=== PATIENT | female | born 1940 | race Caucasian/White ===

== ENCOUNTER 2016-12-17 00:06 | Emergency (ER) | payer MEDICARE, OTHER ==
[2016-12-17] MEDS ORDERED: ASPIRIN 81 MG TABLET, CHEWABLE PO ONE (01:53)
--- NOTE | 2016-12-17 01:56 | ER Document Report ---
ED Cardiac - General Chief Complaint: Chest Pain Stated Complaint: CHEST PAIN Time Seen by Provider: 12/17/16 01:47 Notes: Patient is a 76-year-old female comes emergency department for chief complaint of chest pain, she states pain within the left breast, radiated to her left shoulder and arm, symptoms started at 2300 tonight, she states symptoms have almost completely resolved at this time. She states that after the pain started she vomited once. Patient took 81 mg aspirin. Patient denies shortness of breath, cough, fever, injury. Patient has had a heart attack in 2009 [facility] stent [facility]. Non-smoker, past medical history of type 2 diabetes. TRAVEL OUTSIDE OF THE [place] IN LAST 30 DAYS: No - Related Data Allergies/Adverse Reactions: metoprolol [Metoprolol] Allergy (Severe, Verified 12/17/16 03:37) RASH nitrofurantoin [Nitrofurantoin] Allergy (Severe, Verified 12/17/16 03:37) RASH prasugrel HCl [From Effient] Allergy (Severe, Verified 12/17/16 03:37) RASH Past Medical History - General Information source: Patient - Social History Smoking Status: Never Smoker Frequency of alcohol use: None Drug Abuse: None Lives with: Family Family History: Reviewed & Not Pertinent Patient has suicidal ideation: No Patient has homicidal ideation: No - Past Medical History Cardiac Medical History: Reports: Hx Coronary Artery Disease, Hx Heart Attack - CARDIAC CATH, ANGIOPLASTY AND STENT , Hx Hypercholesterolemia, Hx Hypertension Pulmonary Medical History: Denies: Hx Asthma, Hx Bronchitis, Hx COPD, Hx Pneumonia Neurological Medical History: Denies: Hx Cerebrovascular Accident, Hx Seizures Endocrine Medical History: Reports: Hx Diabetes Mellitus Type 2 Renal/ Medical History: Reports: Hx Kidney Stones. Denies: Hx Peritoneal Dialysis GI Medical History: Denies: Hx Hepatitis, Hx Hiatal Hernia, Hx Ulcer Musculoskeltal Medical History: Denies Hx Arthritis Infectious Medical History: Denies: Hx Hepatitis Past Surgical History: Reports: Hx Cardiac Surgery - stent placement. Denies: Hx Mastectomy, Hx Open Heart Surgery, Hx Pacemaker - Immunizations Hx Diphtheria, Pertussis, Tetanus Vaccination: No Review of Systems - Review of Systems Constitutional: No symptoms reported EENT: No symptoms reported Cardiovascular: See HPI Respiratory: No symptoms reported Gastrointestinal: No symptoms reported Genitourinary: No symptoms reported Female Genitourinary: No symptoms reported Musculoskeletal: No symptoms reported Skin: No symptoms reported Hematologic/Lymphatic: No symptoms reported Neurological/Psychological: No symptoms reported Physical Exam - Vital signs Vitals: Temp Pulse Resp BP Pulse Ox 98 F 92 18 146/70 H 96 12/17/16 00:40 12/17/16 00:40 12/17/16 00:40 12/17/16 00:40 12/17/16 00:40 Interpretation: Normal - General General appearance: Appears well, Alert In distress: None - HEENT Head: Normocephalic, Atraumatic Eyes: Normal Conjunctiva: Normal Extraocular movements intact: Yes Eyelashes: Normal Pupils: PERRL Mouth/Lips: Normal Mucous membranes: Normal Pharynx: Normal Neck: Normal - Respiratory Respiratory status: No respiratory distress Chest status: Nontender Breath sounds: Normal. No: Decreased air movement, Wheezing Chest palpation: Normal - Cardiovascular Rhythm: Regular. No: Tachycardia Heart sounds: Normal auscultation, S1 appreciated, S2 appreciated Murmur: No - Abdominal Inspection: Normal Distension: No distension Bowel sounds: Normal Tenderness: Nontender. No: Tender, Guarding Organomegaly: No organomegaly - Back Back: Normal, Nontender. No: Tender - Extremities General upper extremity: Normal inspection, Nontender, Normal color, Normal ROM , Normal temperature General lower extremity: Normal inspection, Nontender, Normal color, Normal ROM , Normal temperature, Normal weight bearing. No: Chandni's sign - Neurological Neuro grossly intact: Yes Cognition: Normal Orientation: AAOx4 [place] Coma Scale Eye Opening: Spontaneous [place] Coma Scale Verbal: Oriented [place] Coma Scale Motor: Obeys Commands [place] Coma Scale Total: 15 Speech: Normal Cranial nerves: Normal Cerebellar coordination: Normal Motor strength normal: LUE, RUE, LLE, RLE Additional motor exam normals: Equal revenue officer Sensory: Normal - Psychological Associated symptoms: Normal affect, Normal mood - Skin Skin Temperature: Warm Skin Moisture: Dry Skin Color: Normal Course - Re-evaluation Re-evalutation: EKG showing sinus rhythm with known left bundle branch block unchanged from prior. Patient chest pain-free on evaluation. No hypotension, tachycardia, or fever. Patient is alert and well appearing. 12/17/16 02:20 CBC unremarkable, chemistry shows elevated glucose at 476 with normal bicarbonate and anion gap. Troponin is elevated at 0.111, previous evaluation of troponin in this department showed a normal level. Creatinine is normal. Patient is chest pain- free at this time. Giving lovenox, will treat hyperglycemia, gave aspirin. Patient was discussed with Dr. Ackerman per [facility] protocol. 12/17/16 02:30 Spoke with [facility] transfer center, pending call back from hospitalist. Shaq 12/17/16 03:[address] Parsons, [facility] internal medicine, patient will be transferred to their facility. He requests that patient be given Lipitor 20 mg and Plavix 75 mg in addition to obtaining CTA pending transfer. Patient is still chest pain-free on reevaluation, states satisfaction with plan. CTA with no acute findings. 12/17/16 04:50 Patient re-evaluated, no current complaints, stable for transport, transport team is here for the patient. - Vital Signs Vital signs: Temp Pulse Resp BP Pulse Ox 98.1 F 87 19 152/81 H 92 12/17/16 04:31 12/17/16 04:31 12/17/16 04:31 12/17/16 04:31 12/17/16 04:31 - Laboratory Result Diagrams: 12/17/16 01:07 12/17/16 01:07 Laboratory results interpreted by me: 12/17/16 12/17/16 12/17/16 01:07 01:07 02:36 RBC 5.35 H Chloride 97 L Glucose 476 H* POC Glucose 404 H* Direct Bilirubin 0.7 H AST 53 H Alkaline Phosphatase 263 H Discharge - Discharge Clinical Impression: NSTEMI (non-ST elevated myocardial infarction), Hyperglycemia Chest pain Qualifiers: Chest pain type: unspecified Qualified Code(s): R07.9 - Chest pain, unspecified Condition: Stable Disposition: [facility] Referrals: CAREY HOLM, [employer] [Primary Care Provider] - Follow up as needed
[2016-12-17] MEDS ORDERED: ASPIRIN 81 MG TABLET, CHEWABLE ONE (01:57)
[2016-12-17 02:07] LABS: ALANINE AMINOTRANSFERASE 39 U/L (9-52); ALBUMIN 4.1 g/dL (3.5-5.0); ALKALINE PHOSPHATASE 263 U/L (38-126); ANION GAP 13 (5-19); ASPARTATE AMINO TRANSFERASE 53 U/L (14-36); BILIRUBIN,DIRECT 0.7 mg/dL (0.0-0.4); BLOOD UREA NITROGEN 9 mg/dL (7-20); CARBON DIOXIDE 28 mmol/L (22-30); CHLORIDE 97 mmol/L (98-107); CREATINE KINASE 57 U/L (30-135); CREATININE RESULT 0.59 mg/dL (0.52-1.25); SODIUM 138.1 mmol/L (137-145); TOTAL PROTEIN 7.6 g/dL (6.3-8.2)
[2016-12-17 02:09] LABS: ABSOLUTE BASOPHILS # (AUTO) 0.1 10^3/uL (0.0-0.2); ABSOLUTE EOSINOPHILS # (AUTO) 0.2 10^3/uL (0.0-0.6); ABSOLUTE LYMPHOCYTES (AUTO) 1.8 10^3/uL (0.5-4.7); ABSOLUTE MONOCYTES (AUTO) 0.7 10^3/uL (0.1-1.4); ABSOLUTE NEUT (AUTO) 5.9 10^3/uL (1.7-8.2); BASOPHILS % (AUTO) 1.1 % (0-2); EOSINOPHILS % (AUTO) 1.8 % (0-6); HEMATOCRIT 46.7 % (36.0-47.0); HEMOGLOBIN 15.3 g/dL (12.0-15.5); HGB HCT DIFFERENCE -0.8; LYMPHOCYTES % (AUTO) 20.7 % (13-45); MEAN CORPUSCULAR HEMOGLOBIN 28.6 pg (27.0-33.4); MEAN CORPUSCULAR HGB CONC 32.7 g/dL (32.0-36.0); MEAN CORPUSCULAR VOLUME 87 fl (80-97); MONOCYTES % (AUTO) 7.9 % (3-13); RED BLOOD COUNT 5.35 10^6/uL (3.72-5.28); RED CELL DISTRIBUTION WIDTH 13.7 % (11.5-14.0); SEGMENTED NEUTROPHILS % (AUTO) 68.5 % (42-78); WHITE BLOOD COUNT 8.6 10^3/uL (4.0-10.5)
[2016-12-17 02:19] LABS: CREATINE KINASE MB 1.76 ng/mL (<4.55); GLUCOSE 476 mg/dL (75-110)
[2016-12-17 02:20] LABS: TROPONIN I 0.111 ng/mL
[2016-12-17] MEDS ORDERED: ENOXAPARIN SODIUM INJ 80 MG/0.8 ML DISP.SYRIN SUBCUT SCH ×2 (02:30→03:00)
[2016-12-17] MEDS ORDERED: INSULIN REG, HUMAN 100 UNIT/ML 3 ML VIAL (PYX) SUBCUT ONE (02:38)
[2016-12-17] MEDS ORDERED: ATORVASTATIN CALCIUM 20 MG TABLET PO ONE (03:00)
[2016-12-17] MEDS ORDERED: CLOPIDOGREL BISULFATE 75 MG TABLET PO ONE (03:00)
[2016-12-17 04:36] VITALS: BP 152/81
--- NOTE | 2016-12-17 10:36 | EKG REPORT ---
SEVERITY:- ABNORMAL ECG - SINUS RHYTHM LEFT BUNDLE BRANCH BLOCK : Confirmed by: Nancy Gonzales MD 17-Dec-2016 10:36:08
== END 2016-12-17 04:50 | disposition short-term general hospital (02) ==
LOC: ER 00:06
DX: I21.4 Non-ST elevation (NSTEMI) myocardial infarction (principal); I10 Essential (primary) hypertension; E11.65 Type 2 diabetes mellitus with hyperglycemia; R11.10 Vomiting, unspecified; R07.9 Chest pain, unspecified; I25.2 Old myocardial infarction; I44.7 Left bundle-branch block, unspecified; Z98.61 Coronary angioplasty status; Z88.8 Allergy status to other drugs, medicaments and biological substances; Z88.1 Allergy status to other antibiotic agents
CPT/HCPCS: 93005; 99285; 96372; 36415; 82553; 82962; 82550; 85025; 80053; 84484; 71010; 71275; 93010; A9270 ×3; J1650; J1815

== ENCOUNTER 2019-06-08 23:17 | Emergency (ER) | payer MEDICARE, OTHER ==
--- NOTE | 2019-06-08 23:39 | ER Document Report ---
ED General - General Chief Complaint: Unresponsive Stated Complaint: UNRESPONSIVE Time Seen by Provider: 06/08/19 23:22 Primary Care Provider: CAREY HOLM [employer]BOL APPLICATION DEVELOPER [Primary Care Provider] - Follow up as needed TRAVEL OUTSIDE OF THE [place] IN LAST 30 DAYS: No - HPI Notes: 78-year-old female with prior history of IN x2 collapsed at home tonight with initiation of CPR by family about 30 minutes prior to arrival here. EMS arrived found patient in V. fib arrest. She was defibrillated a total of 7 times with return of spontaneous circulation. They placed an endotracheal tube. Patient was given amiodarone multiple doses of epi and 1 dose of IV bicarbonate. She was started on levo fed for blood pressure support during transport. He arrives with a pulse with agonal respirations. - Related Data Allergies/Adverse Reactions: metoprolol [Metoprolol] Allergy (Severe, Verified 12/17/16 03:37) RASH nitrofurantoin [Nitrofurantoin] Allergy (Severe, Verified 12/17/16 03:37) RASH prasugrel HCl [From Effient] Allergy (Severe, Verified 12/17/16 03:37) RASH Past Medical History - General Information source: Emergency Med Personnel, [facility] Records - Social History Smoking Status: Current Every Day Smoker Chew tobacco use (# tins/day): No Drug Abuse: None Family History: Reviewed & Not Pertinent Patient has suicidal ideation: No Patient has homicidal ideation: No - Past Medical History Cardiac Medical History: Reports: Hx Coronary Artery Disease, Hx Heart Attack - CARDIAC CATH, ANGIOPLASTY AND STENT , Hx Hypercholesterolemia, Hx Hypertension Pulmonary Medical History: Denies: Hx Asthma, Hx Bronchitis, Hx COPD, Hx Pneumonia Neurological Medical History: Denies: Hx Cerebrovascular Accident, Hx Seizures Endocrine Medical History: Reports: Hx Diabetes Mellitus Type 1, Hx Diabetes Mellitus Type 2 Renal/ Medical History: Reports: Hx Kidney Stones. Denies: Hx Peritoneal Dialysis GI Medical History: Denies: Hx Hepatitis, Hx Hiatal Hernia, Hx Ulcer Musculoskeletal Medical History: Denies Hx Arthritis Infectious Medical History: Denies: Hx Hepatitis Past Surgical History: Reports: Hx Cardiac Catheterization, Hx Cardiac Surgery - stent placement. Denies: Hx Mastectomy, Hx Open Heart Surgery, Hx Pacemaker - Immunizations Hx Diphtheria, Pertussis, Tetanus Vaccination: No Physical Exam - Vital signs Vitals: Resp 17 06/08/19 23:22 Notes: GENERAL: Elderly female intubated with agonal respirations being bagged on arrival. SKIN: Skin cool moist and pale. HEAD: Normocephalic atraumatic. EYES: Pupils mid position equal and sluggishly reactive to light.. Conjunctivae and sclerae clear. EARS: CANALS AND TMS CLEAR. NOSE: CLEAR. MOUTH: ET tube in mouth at depth of 20. This is a 6.5 mm tube. NECK: Supple. No masses or thyromegaly. No adenopathy. Carotids 2+ without bruits. No JVD. CHEST: Patient is being bagged with symmetrical breath sounds. HEART: Bradycardic regular rhythm. No murmur gallop or rub. ABDOMEN: Soft nontender without masses, organomegaly or rebound. Bowel sounds normally active. No bruits. GENITALIA: Normal female EXTREMITIES: IO line in left lower leg. No edema. Dorsalis pedis and posterior tibial pulses 1 + and symmetrical. NEUROLOGICAL: Unresponsive GCS of 3T Course - Vital Signs Vital signs: Temp Pulse Resp BP Pulse Ox 21 H 115/58 L 100 06/08/19 23:33 06/08/19 23:33 06/09/19 00:05 - Laboratory Result Diagrams: 06/08/19 23:33 06/08/19 23:33 Laboratory results interpreted by me: 06/08/19 06/08/19 06/08/19 23:33 23:33 23:33 WBC 26.7 H MCHC 31.8 L RDW 14.9 H Band Neutrophils % 2 L Abs Neuts (Manual) 21.1 H PT 19.1 H APTT 47.4 H Carbonic Acid 1.02 L ABG pCO2 33.9 L ABG HCO3 19.5 L ABG Total CO2 20.6 L POC Glucose Urine Protein Urine Glucose (UA) Urine Blood Urine Nitrite Ur Leukocyte Esterase 06/08/19 06/08/19 23:40 23:45 WBC MCHC RDW Band Neutrophils % Abs Neuts (Manual) PT APTT Carbonic Acid ABG pCO2 ABG HCO3 ABG Total CO2 POC Glucose 149 H Urine Protein 30 H Urine Glucose (UA) 50 H Urine Blood LARGE H Urine Nitrite POSITIVE H Ur Leukocyte Esterase LARGE H - EKG Interpretation by Me Rate: Bradycardia - Junctional bradycardia with intraventricular conduction delay. ST depressions noted in anterolateral leads. No ST elevations. Critical Care Note - Critical Care Note Total time excluding time spent on procedures (mins): 75 Comments: Patient presented status post V. fib arrest. Already been intubated by rescue team in the field. Obtained return of spontaneous circulation after defibrillation x7. Medications administered in the field included epinephrine, magnesium, sodium bicarbonate and amiodarone. Patient was transiently hypotensive and they started levofed prior to arrival. Initial EKG did not show any ST elevations. Patient's initial temperature was 96. We will packed the groin and axilla with ice at this time. Patient is continued on levofed drip and amiodarone drip. OG and Uriarte catheter placed. Cardiac enzymes pending at this time. Case was discussed with Dr. Yasir Tan the on-call hospitalist. He declined admission here due to lack of cardiology back-up and requested that we transfer the patient. Patient is previously been seen by [facility] cardiology group in [facility]. I spoke with the hospitalist semiconductor packages platemaker at [facility], Dr. Blaise Lorenzo, who agreed to accept the patient for answer to the CCU at their facility. Patient will be seen by oracle ascp consultant from [facility] cardiology upon arrival at that facility. Discharge - Discharge Clinical Impression: V. fib cardiac arrest, Hypokalemia Condition: Critical Disposition: [facility] Referrals: CAREY HOLM COBOL APPLICATION DEVELOPER [Primary Care Provider] - Follow up as needed
[2019-06-08 23:47] LABS: HEMATOCRIT 42.6 % (36.0-47.0); HEMOGLOBIN 13.5 g/dL (12.0-15.5); MEAN CORPUSCULAR HEMOGLOBIN 28.9 pg (27.0-33.4); MEAN CORPUSCULAR HGB CONC 31.8 g/dL (32.0-36.0); MEAN CORPUSCULAR VOLUME 91 fl (80-97); PLATELET COUNT 206 10^3/uL (150-450); RED BLOOD COUNT 4.68 10^6/uL (3.72-5.28); RED CELL DISTRIBUTION WIDTH 14.9 % (11.5-14.0); WHITE BLOOD COUNT 26.7 10^3/uL (4.0-10.5)
[2019-06-08 23:51] LABS: ARTERIAL BLOOD BASE EXCESS -4.8 mmol/L; ARTERIAL BLOOD H2CO3 1.02 mmol/L (1.05-1.35); ARTERIAL BLOOD HCO3 19.5 mmol/L (20-24); ARTERIAL BLOOD O2 SATURATION 95.9 % (94-98); ARTERIAL BLOOD PCO2 33.9 mmHg (35-45); ARTERIAL BLOOD PH 7.38 (7.35-7.45); ARTERIAL BLOOD TOTAL CO2 20.6 mmol/L (21-25)
[2019-06-08 23:52] LABS: ARTERIAL BLOOD FIO2 60%
[2019-06-08 23:57] LABS: INTERNATIONAL RATION (INR) 1.59; PROTHROMBIN TIME 19.1 SEC (11.4-15.4)
[2019-06-08 23:58] LABS: PARTIAL THROMBOPLASTIN TIME 47.4 SEC (23.5-35.8)
[2019-06-08 23:59] LABS: APPEARANCE,URINE CLOUDY; BILIRUBIN,URINE NEGATIVE (NEGATIVE); COLOR,URINE YELLOW; GLUCOSE, URINE 50 mg/dL (NEGATIVE); KETONES,URINE NEGATIVE (NEGATIVE); LEUKOCYTE ESTERASE,URINE LARGE (NEGATIVE); NITRITE,URINE POSITIVE (NEGATIVE); PROTEIN,URINE 30 mg/dL (NEGATIVE); UROBILINOGEN,URINE NEGATIVE mg/dL (<2.0)
[2019-06-09] MEDS ORDERED: DEXTROSE 5%-WATER 500 ML with AMIODARONE HCL 900 MG IV PRN ×2 (00:01)
[2019-06-09 00:03] LABS: ABSOLUTE LYMPHOCYTES# (MANUAL) 4.3 10^3/uL (0.5-4.7); ABSOLUTE MONOCYTES # (MANUAL) 1.1 10^3/uL (0.1-1.4); ALBUMIN 2.8 g/dL (3.5-5.0); ALKALINE PHOSPHATASE 118 U/L (38-126); ANION GAP 17 (5-19); ASPARTATE AMINO TRANSFERASE 72 U/L (14-36); BAND NEUTROPHILS % (MANUAL) 2 % (3-5); BASOPHILS % (MANUAL) 0 % (0-2); BILIRUBIN,DIRECT 0.5 mg/dL (0.0-0.4); BLOOD UREA NITROGEN 11 mg/dL (7-20); CALCIUM 8.8 mg/dL (8.4-10.2); CARBON DIOXIDE 23 mmol/L (22-30); CHLORIDE 103 mmol/L (98-107); EOSINOPHILS % (MANUAL) 1 % (0-6); GLUCOSE 208 mg/dL (75-110); LYMPHOCYTES % (MANUAL) 15 % (13-45); MONOCYTES % (MANUAL) 4 % (3-13); SEGMENTED NEUTROPHILS % (MAN) 77 % (42-78); TOTAL CELLS COUNTED 100; TOTAL PROTEIN 5.9 g/dL (6.3-8.2)
[2019-06-09 00:04] LABS: ANISOCYTOSIS SLIGHT; PLATELET COMMENT ADEQUATE
[2019-06-09] MEDS ORDERED: AMIODARONE HCL INJ 150 MG/3 ML VIAL IV ONE (00:12)
[2019-06-09 00:14] LABS: POTASSIUM 1.6 mmol/L (3.6-5.0)
--- NOTE | 2019-06-09 00:14 | RADIOLOGY REPORT (SQ) ---
EXAM DESCRIPTION: XR CHEST 1 VIEW COMPLETED DATE/TME: 06/08/2019 23:24 CLINICAL HISTORY: 78 years, Female, Cardiac arrest COMPARISON: None. NUMBER OF VIEWS: One TECHNIQUE: Single frontal view of the chest was obtained portably LIMITATIONS: None. FINDINGS: Enteric drainage tube tip is located within the gastric body. Endotracheal tube tip is located within the trachea, approximately 4.2 cm above the mitzi. Cardiopericardial silhouette is enlarged. Bilateral perihilar opacity with vascular indistinctness is noted. No large pleural effusion or pneumothorax. Suspect fracture involving the left lateral third rib. IMPRESSION: Endotracheal tube tip is located within the trachea, approximately 4.2 cm above the mitzi. Enteric drainage tube tip curls within the gastric body. Bilateral perihilar opacity with vascular is thickness, suspicious for pulmonary edema. Suspect fracture involving the left lateral third rib. copyright 2010 [employer]- All Rights Reserved
[2019-06-09] MEDS ORDERED: POTASSI CL 20 MEQ/50 ML RIDER 20 MEQ/50 ML RTUPB IV SCH (00:30)
[2019-06-09 00:47] VITALS: BP 128/55
--- NOTE | 2019-06-10 21:37 | EKG REPORT ---
SEVERITY:- ABNORMAL ECG - ACCELERATED JUNCTIONAL ESCAPE RHYTHM VS SINUS BRADYCARDIA IVCD, CONSIDER ATYPICAL RBBB ST DEPRESSION, CONSIDER ISCHEMIA, ANT-LAT LDS : Confirmed by: Amor Orellana 10-Jun-2019 21:36:32
== END 2019-06-09 01:03 | disposition short-term general hospital (02) ==
LOC: ER 23:17
DX: I49.01 Ventricular fibrillation (principal); I46.2 Cardiac arrest due to underlying cardiac condition; E87.6 Hypokalemia; I25.10 Atherosclerotic heart disease of native coronary artery without angina pectoris; I10 Essential (primary) hypertension; I25.2 Old myocardial infarction; E11.9 Type 2 diabetes mellitus without complications; F17.200 Nicotine dependence, unspecified, uncomplicated; Z95.5 Presence of coronary angioplasty implant and graft; Z88.8 Allergy status to other drugs, medicaments and biological substances; Z88.1 Allergy status to other antibiotic agents
CPT/HCPCS: 93005; 36415; 82962; 82803; 83735; 85025; 85610; 85730; 80053; 81001; 84484; 71045; 93010; 94002; 94003; J3480; J7060; J0282